=== PATIENT | female | born 1940 | race Caucasian/White ===

== ENCOUNTER 2019-09-30 20:50 | Outpatient (CLI) | payer MEDICARE, OTHER | END 2019-10-01 07:10 | disposition home or self-care (01) | LOC: SLEEP 20:50 | PROVIDERS: ATTEND Nurse Practitioner Family | DX: G47.33 Obstructive sleep apnea (adult) (pediatric) (principal); G47.10 Hypersomnia, unspecified; I27.0 Primary pulmonary hypertension | CPT/HCPCS: 95811 ==

== ENCOUNTER → 2021-02-11 | Outpatient (CLI) | payer MEDICARE, OTHER | LOC: CARD 10:45 | PROVIDERS: ATTEND Internal Medicine Cardiovascular Disease | DX: I27.21 Secondary pulmonary arterial hypertension (principal) | CPT/HCPCS: 93306 ==

== ENCOUNTER → 2021-02-12 | Outpatient (CLI) | payer MEDICARE, OTHER ==
[~2021-02-12] MED LIST: CATHETER FLUSH 10 ML SYR IV PRN; REGADENOSON 0.4 MG/5 ML SYR (LEXISCAN) IV ONE
[2021-02-12 09:11] VITALS: BP 151/68
--- NOTE | 2021-02-15 12:13 | STRESS TEST ---
DATE OF SERVICE: 02/12/2021 RESTING AND POST REGADENOSON TECHNETIUM-99M TETROFOSMIN SPECT CT IMAGING CLINICAL DIAGNOSES: Left bundle branch block, abnormal electrocardiogram. ORDERING PHYSICIAN: Dr. Zamora. PRIMARY PHYSICIAN: Dr. Saunders. Baseline images were carried out after injection of 10.6 mCi of technetium-99m Tetrofosmin. This was followed by 0.4 mg regadenoson and 29.1 mCi of technetium-99m Tetrofosmin for stress imaging. The electrocardiogram showed sinus rhythm. There was left bundle branch block. The electrocardiogram did not change significantly with regadenoson infusion. Review of images at rest and following stress indicate a moderate amount of anteroseptal perfusion defect that appears transient. Gated images show normal global left ventricular systolic function with normal regional wall motion. SDS is 14. Left ventricular ejection fraction is calculated to be 80%. TID is absent (0.92). Left ventricular end-diastolic volume is 46 mL. CONCLUSIONS: 1. The study is indicative of a moderate amount of anteroseptal ischemia. 2. Normal regional wall motion. 3. Normal global left ventricular systolic function with a calculated ejection fraction of 80%. Job ID: [id number] DocumentID: [id number] Dictated Date: 02/15/2021 08:44:36 Building Attendant Date: 02/15/2021 12:12:20 Dictated By: NEVIN ZAMORA MD, MA, FACP, FACC,
== END ==
LOC: CARD 08:15
PROVIDERS: ATTEND Internal Medicine Cardiovascular Disease
DX: I44.7 Left bundle-branch block, unspecified (principal); R94.31 Abnormal electrocardiogram [ECG] [EKG]
CPT/HCPCS: 78452; 93017; A9502

== ENCOUNTER 2021-03-02 10:00 | Day surgery (SDC) | payer MEDICARE, OTHER ==
[~2021-03-02] VITALS: Ht 149.9 cm; Wt 82.1 kg
[2021-03-02 08:46] VITALS: BP 147/71
[2021-03-02 09:04] LABS: HEMATOCRIT 41 % (35-52); HEMOGLOBIN 13.4 g/dL (11.5-16.0); MEAN CORPUSCULAR HEMOGLOBIN 31 pg (25-34); MEAN CORPUSCULAR HGB CONC 32 g/dL (32-36); MEAN CORPUSCULAR VOLUME 95 fL (80-99); MEAN PLATELET VOLUME 9.4 fL (9.0-12.2); PLATELET COUNT 294 10^3/uL (130-400); WHITE BLOOD COUNT 6.1 10^3/uL (4.3-11.0)
[2021-03-02 09:09] LABS: ALANINE AMINOTRANSFERASE 34 U/L (0-55); ALBUMIN 4.2 GM/DL (3.2-4.5); ALKALINE PHOSPHATASE 51 U/L (40-136); BILIRUBIN,TOTAL 0.5 MG/DL (0.1-1.0); BUN/CREATININE RATIO 28; CALCIUM 9.5 MG/DL (8.5-10.1); CARBON DIOXIDE 27 MMOL/L (21-32); CHLORIDE 105 MMOL/L (98-107); CHOLESTEROL 149 MG/DL (< 200); CREATININE SERUM 0.68 MG/DL (0.60-1.30); GFR ESTIMATED > 60; GLUCOSE 130 MG/DL (70-105); HDL CHOLESTEROL 62 MG/DL (40-60); POTASSIUM 3.7 MMOL/L (3.6-5.0); SODIUM 141 MMOL/L (135-145); TOTAL PROTEIN 7.1 GM/DL (6.4-8.2); TRIGLYCERIDES 134 MG/DL (<150); VLDL CHOLESTEROL 27 MG/DL (5-40)
[~2021-03-02 10:00] MED LIST changes: +AMLO-250 PO; +ASCO500C17 PO; +ASPI-1238 PO; +BENA20TA7 PO; +CALC-794 PO; -CATHETER FLUSH 10 ML SYR IV PRN; +CHOL100048 PO; +CYAN-23 PO; +GLIP5TAB26 PO; +HYDR12.56 PO; +LOVA40TA2 PO; +METF-399 PO; +MULT-593 PO; +NS IV 1000 ML 1,000 ML IV SCH; +OMEP40CA6 PO; +PIOG30TA71 PO; -REGADENOSON 0.4 MG/5 ML SYR (LEXISCAN) IV ONE
[2021-03-02] MEDS ORDERED: MIDAZOLAM 5 MG/5 ML (VERSED) VIAL ONE (10:17)
[2021-03-02] MEDS ORDERED: fentaNYL INJ 100 MCG/2 ML AMP ONE (10:17)
--- NOTE | 2021-03-02 11:10 | Cardiac Procedure Note-CS/ASA ---
Pre-Procedure Note Pre-Op Procedure Note H&P Reviewed The H&P was reviewed, patient examined and no changes noted. Date H&P Reviewed: Mar 02, 2021 Time H&P Reviewed: 10:30 Conscious Sedation Pre-Proced Time 10:30 ASA Score 3 For ASA 3 and 4: Consider anesthesia and medical clearance. Also, for patients with a history of failed moderate sedation consider anesthesia. Airway Lungs Heart ASA score ASA 1: a normal healthy patient ASA 2: a patient with a mild systemic disease (mid diabetes, controlled hypertension, obesity ASA 3: a patient with a severe systemic disease that limits activity (angina, COPD, prior Myocardial infarction) ASA 4: a patient with an incapacitating disease that is a constant threat to life (CHF, renal failure) ASA 5: a moribund patient not expected to survive 24 hrs. (ruptured aneurysm) ASA 6: a declared brain- patient whose organs are being harvested. For emergent operations, add the letter E after the classification Mallampati Classification Grade 2 Sedation Plan Analgesia, Amnesia, Plan communicated to team members, Discussed options with patient/fam, Discussed risks with patient/fam The patient is an appropriate candidate to undergo the planned procedure, sedation, and anesthesia. The patient immediately re-assessed prior to indication. NEVIN WATKINS MD FACP [facility] Mar 02, 2021 11:10
--- NOTE | 2021-03-02 11:13 | Discharge Inst-Cardiology ---
Discharge Inst-Cardiac Discharge Medications Continued Medications: Amlodipine Besylate (Amlodipine Besylate) 5 Mg Tablet 5 MG PO BID, TAB Ascorbic Acid (Vitamin C) 500 Mg Capsule 500 MG PO DAILY, CAP Aspirin (Aspirin EC) 81 Mg Tablet.dr 81 MG PO DAILY, TAB Benazepril HCl (Benazepril HCl) 20 Mg Tablet 20 MG PO BID, TAB Calcium Carb & Citrate/Vit D3 (Calcium + D3 ER Tablet) 1 Each Tablet.er 1 EACH PO BID, TAB Cholecalciferol (Vitamin D3) (Vitamin D3) 25 Mcg Capsule 25 MCG PO DAILY PRN, CAP Cyanocobalamin (Vitamin B-12) (Vitamin B-12) 1,000 Mcg Capsule 1000 MCG PO DAILY, CAP Glipizide (Glipizide ER) 5 Mg Tab.er.24 5 MG PO DAILY, TAB Glipizide (Glipizide ER) 5 Mg Tab.er.24 2.5 MG PO EVENING, TAB Hydrochlorothiazide (Hydrochlorothiazide) 12.5 Mg Tablet 12.5 MG PO DAILY, TAB Lovastatin (Lovastatin) 40 Mg Tablet 40 MG PO HS, TAB Multivitamin with Minerals (Multiple Vitamin) 1 Each Tablet 1 EACH PO DAILY, TAB Omeprazole (Omeprazole) 40 Mg Capsule.dr 40 MG PO DAILY, CAP Pioglitazone HCl (Pioglitazone HCl) 30 Mg Tablet 30 MG PO DAILY, TAB Discontinued Medications: Metformin HCl (Metformin HCl) 1,000 Mg Tablet 1000 MG PO BID, TAB Patient Instructions Patient Instructions: Resume METFORMIN at previous dose on the evening of 03/04/21 (hold until then) NEVIN WATKINS MD FACP [facility] Mar 02, 2021 11:13
--- NOTE | 2021-03-02 11:14 | Discharge Inst-Post CATH ---
Discharge Inst-CATH/EP Post Cardiac Cath/EP D/C Inst Follow Up/Plan F/u with Dr Zamora in 4 - 6 weeks ACTIVITY * Go Home directly and rest. * Limit activity of the leg (or wrist if it was used) for 7 days including aerobics, swimming, jogging, bicycling, etc. * Restrict stair-climbing for 7 days if possible, if not, climb up with your non-cath leg, then bring together on the same step. * Avoid lifting, pushing, pulling or excessive movement of the affected extremity for 7 days. * Customary sexual activity may be resumed after 2 days-use caution not to use a position that strains or causes pain to the affected extremity. * No driving for 24 hours. * NO SMOKING. * Avoid straining for bowel movements for 7 days. * Gentle walking on level ground is allowed. * Returning to work will depend on the type of procedure and the results. Your doctor will discuss this with you. CALL YOUR DOCTOR FOR ANY OF THE FOLLOWING: *If bleeding from the puncture site occurs- Apply gentle pressure to site with clean cloth and call your doctor or EMS. * If a knot or lump forms under the skin, increases in size, or causes pain. * If bruising appears to be worsening or moving further down your leg instead of disappearing. * Temperature above 101 F. CARE OF YOUR GROIN INCISION; * Bruising or purple discoloration of the skin near the puncture site is common. * You may shower only, no bathtub bathing for 5 days. Be careful to avoid slipping as your leg may feel stiff. * If a closure device was used on your femoral artery, please see the attached guide regarding care of the device and your leg. * Leave dressing on FOR 24 hours. CARE OF YOUR WRIST INCISION; * Bruising or purple discoloration of the skin near the puncture site is common. * You may shower. * DO NOT submerge wrist. * Leave dressing on FOR 24 hours. NEVIN ZAMORA MD [facility] Mar 02, 2021 11:14
[2021-03-02] MEDS ORDERED: PATIENT MAY USE OWN MEDS, ALL PO SCH (11:15)
[2021-03-02] MEDS ORDERED: NS IV 1000 ML 1,000 ML IV SCH (11:15)
[2021-03-02 11:28] VITALS: BP 129/59
--- NOTE | 2021-03-02 12:40 | CARDIAC CATHETERIZATION ---
DATE OF SERVICE: 03/02/2021 CARDIAC CATHETERIZATION REPORT The patient is a 80-year-old lady with multiple coronary artery disease risk factors who has been experiencing symptoms of chest discomfort and shortness of breath. Myocardial perfusion imaging was indicative of anteroseptal ischemia. Cardiac catheterization was carried out today after having obtained an informed consent. PROCEDURE: She was brought to the cardiac catheterization laboratory in a fasting state. Right groin was prepared and draped in the usual sterile fashion. Lidocaine 1% was used for local anesthesia. Modified Seldinger technique was used to advance a 5-Barbadian sheath in right femoral artery. A 5-Barbadian JL4 catheter for left angiography, 5-Barbadian JR4 catheter for right coronary angiography, 5-Barbadian pigtail catheter was used for left heart catheterization and left ventricular angiography. At the end of the procedure, following angiography of the right femoral artery, Mynx was used to achieve hemostasis. She tolerated the procedure well. HEMODYNAMICS: Left ventricular end-diastolic pressure following coronary angiography was 13 mmHg. There was no significant pressure gradient on pullback across the aortic valve. LEFT VENTRICULAR ANGIOGRAPHY: Left ventricular angiography was carried out in the right anterior oblique projection. Global left ventricular systolic function is normal. Left ventricular ejection fraction is approximately 55% to 60%. CORONARY ANGIOGRAPHY: Diffuse coronary calcification is seen. Left main coronary artery does not exhibit significant obstructive disease. Left anterior descending, left circumflex, right coronary arteries have diffuse mild to moderate plaque. The right coronary artery is dominant. CONCLUSIONS: 1. Coronary artery disease, mild to moderate, diffuse. 2. Normal global left ventricular systolic function with an ejection fraction of 55% to 60%. 3. Left ventricular end-diastolic pressure is approximately 13 mmHg. DISCUSSION AND RECOMMENDATIONS: Based on results of the study, it appears appropriate to continue a conservative approach. Risk factor modification has been reviewed. Outpatient followup is advised. Job ID: [id number] DocumentID: [id number] Dictated Date: 03/02/2021 11:17:59 Billing And Insurance Coordinator Date: 03/02/2021 12:40:07 Dictated By: NEVIN WATKINS MD, MA, FACP, FACC,
== END 2021-03-02 15:14 | disposition home or self-care (01) ==
LOC: CATH 10:00 → CSD 12:29 → CATH 15:14
PROVIDERS: ATTEND Internal Medicine Cardiovascular Disease
DX: I25.10 Atherosclerotic heart disease of native coronary artery without angina pectoris (principal); E11.9 Type 2 diabetes mellitus without complications; E78.2 Mixed hyperlipidemia; G47.33 Obstructive sleep apnea (adult) (pediatric); G47.10 Hypersomnia, unspecified; I10 Essential (primary) hypertension; I44.7 Left bundle-branch block, unspecified; I65.23 Occlusion and stenosis of bilateral carotid arteries; I27.21 Secondary pulmonary arterial hypertension; E66.9 Obesity, unspecified; Z68.36 Body mass index [BMI] 36.0-36.9, adult; Z79.82 Long term (current) use of aspirin; Z79.84 Long term (current) use of oral hypoglycemic drugs; Z79.899 Other long term (current) drug therapy
CPT/HCPCS: 80053; 80061; 85027; 85610; 85730; 87081; 93458; C1760; C1894; 36415